=== PATIENT | female | born 1985 | race Caucasian/White ===

== ENCOUNTER 2017-08-10 08:05 | Emergency (ER) | payer SELFPAY ==
[~2017-08-10] VITALS: Ht 152.4 cm; Wt 90.5 kg
[~2017-08-10 08:05] MED LIST: CEPH500C3
[2017-08-10 08:07] VITALS: BP 147/99; PULSE 87; RESP 20; TEMP 97.5; O2SAT 100
[2017-08-10] MEDS ORDERED: ALPR0.5T3 PO (08:41)
[2017-08-10] MEDS ORDERED: CARB200T PO (08:41)
[2017-08-10] MEDS ORDERED: ADDE20 PO (08:41)
[2017-08-10] MEDS ORDERED: ZOLP10TA3 PO (08:41)
[2017-08-10] MEDS ORDERED: BUPR300T PO (08:41)
--- NOTE | 2017-08-10 08:41 | PD ---
HPI Chief Complaint: Abdominal Pain Time Seen by Provider: 08:39 Travel History International Travel<30 days: No Contact w/Intl Traveler<30days: No Traveled to known affect area: No History of Present Illness HPI 32-year-old female came to the emergency room complaining of vomiting, epigastric pain and diarrhea since yesterday. Patient was extremely tearful and anxious while trying to give me the history. She does have a history of these abdominal pains but has not had it in few months now. She was going to [place] for her previous episodes. She has had 2 endoscopy and colonoscopy and with biopsy. They have all been negative. Vital signs are stable. Patient points to her epigastric area for the pain with no radiation. PFSH Past Medical History Narrative Medical List of her past medical, surgical, social and family history reviewed from the nursing note. Arthritis: No Asthma: No Autoimmune Disease: No Heart Rhythm Problems: No High Cholesterol: No Chest Pain: No Congestive Heart Failure: No COPD: No Cerebrovascular Accident: No Diabetes: No Diminished Hearing: No Gastrointestinal Disorders: Yes (HEREDITARY ANGIOEDEMA) GERD: No Glaucoma: No Headaches: No Hepatitis: No Hiatal Hernia: No Hypertension: No Kidney Stones: No Reproductive: Yes (ENDOMETRIAL HYPERPLASIA) Myocardial Infarction: No Renal Failure: No Seizures: No Sleep Apnea: No Thyroid Disease: No Ulcer: Yes Tetanus Vaccination: Unknown Influenza Vaccination: No ?: Not : 1 Para: 0 Miscarriage: 1 Dilation and Curettage (D&C): Yes Past Surgical History AICD: No Gynecologic Surgery: Yes (MASS REMOVED FROM UTERUS) Pacemaker: No Social History Alcohol Use: Yes (ONCE A WEEK ) Tobacco Use: No (7.5 PACK YEARS ) Substance Use: No Allergies-Medications (Allergen,Severity, Reaction): Coded Allergies: ondansetron (Verified Allergy, Severe, anaphalactic, 08/10/17) morphine (Verified Allergy, Intermediate, hives, 08/10/17) Comments List of her allergies reviewed from the nursing note. Reported Meds & Prescriptions Reported Meds & Active Scripts Active Protonix (Pantoprazole Sodium) 20 Mg Tab 20 Mg PO DAILY Macrobid (Nitrofurantoin Monoh/Nitrofur Macro) 100 Mg Cap 100 Mg PO BID 7 Days Reported Alprazolam 0.5 Mg Tab 0.5 Mg PO Q8H PRN Carbamazepine 200 Mg Tab 200 Mg PO BID Adderall (Amphetamine-Dextroamphetamine) 20 Mg Tab 20 Mg PO BID Avoid late evening doses. Space doses at least 4 to 6 hours if more than once/day dosing. Bupropion HCl ER 24 HR (Bupropion HCl) 300 Mg Tab 300 Mg PO DAILY Zolpidem (Zolpidem Tartrate) 10 Mg Tab 10 Mg PO HS PRN Narrative Medication List of her home medications reviewed from the nursing note. Review of Systems Except as stated in HPI: all other systems reviewed are Neg Gastrointestinal: Positive: Nausea, Vomiting, Diarrhea, Abdominal Pain Physical Exam Narrative GENERAL: Awake, alert, anxious, tearful, obese, moderate distress SKIN: Focused skin assessment warm/dry. HEAD: Atraumatic. Normocephalic. EYES: Pupils equal and round. No scleral icterus. No injection or drainage. ENT: No nasal bleeding or discharge. Mucous membranes pink and moist. NECK: Trachea midline. No JVD. CARDIOVASCULAR: Regular rate and rhythm. No murmur appreciated. RESPIRATORY: No accessory muscle use. Clear to auscultation. Breath sounds equal bilaterally. GASTROINTESTINAL: Abdomen soft, non-tender, nondistended. Hepatic and splenic margins not palpable. MUSCULOSKELETAL: No obvious deformities. No clubbing. No cyanosis. No edema. NEUROLOGICAL: Awake and alert. No obvious cranial nerve deficits. Motor grossly within normal limits. Normal speech. PSYCHIATRIC: Appropriate mood and affect; insight and judgment normal. Data Data Last Documented VS Orders Orders Complete Blood Count With Diff (08/10/17 08:46) Comprehensive Metabolic Panel (08/10/17 08:46) Lipase (08/10/17 08:46) Iv Access Insert/Monitor (08/10/17 08:46) Ecg Monitoring (08/10/17 08:46) Oximetry (08/10/17 08:46) Pantoprazole Inj (Protonix Inj) (08/10/17 09:00) Sodium Chloride 0.9% Flush (Ns Flush) (08/10/17 09:00) Ketorolac Inj (Toradol Inj) (08/10/17 09:00) Metoclopramide Inj (Reglan Inj) (08/10/17 09:00) Alprazolam (Xanax) (08/10/17 09:00) Urinalysis - C+S If Indicated (08/10/17 08:48) Ed Urine Pregnancytest Poc (08/10/17 08:48) Ct Abd/Pel W/O Iv Contrast (08/10/17 ) ^ Straight Catheter (08/10/17 11:04) Urine Culture (08/10/17 11:15) Nitrofurantoin Monohyd Macrocr (Macrobid (08/10/17 12:15) Ed Discharge Order (08/10/17 13:08) Labs Laboratory Tests Test 08/10/17 09:05 08/10/17 11:15 White Blood Count 9.6 TH/MM3 Red Blood Count 4.60 MIL/MM3 Hemoglobin 14.3 GM/DL Hematocrit 40.7 % Mean Corpuscular Volume 88.4 FL Mean Corpuscular Hemoglobin 31.0 PG Mean Corpuscular Hemoglobin Concent 35.0 % Red Cell Distribution Width 12.3 % Platelet Count 211 TH/MM3 Mean Platelet Volume 9.4 FL Neutrophils (%) (Auto) 75.3 % Lymphocytes (%) (Auto) 16.3 % Monocytes (%) (Auto) 6.2 % Eosinophils (%) (Auto) 1.8 % Basophils (%) (Auto) 0.4 % Neutrophils # (Auto) 7.2 TH/MM3 Lymphocytes # (Auto) 1.6 TH/MM3 Monocytes # (Auto) 0.6 TH/MM3 Eosinophils # (Auto) 0.2 TH/MM3 Basophils # (Auto) 0.0 TH/MM3 CBC Comment DIFF FINAL Differential Comment Blood Urea Nitrogen 20 MG/DL Creatinine 0.69 MG/DL Random Glucose 87 MG/DL Total Protein 7.1 GM/DL Albumin 3.9 GM/DL Calcium Level 8.8 MG/DL Alkaline Phosphatase 63 U/L Aspartate Amino Transf (AST/SGOT) 27 U/L Alanine Aminotransferase (ALT/SGPT) 59 U/L Total Bilirubin 0.3 MG/DL Sodium Level 139 MEQ/L Potassium Level 4.2 MEQ/L Chloride Level 108 MEQ/L Carbon Dioxide Level 21.7 MEQ/L Anion Gap 9 MEQ/L Estimat Glomerular Filtration Rate 99 ML/MIN Lipase 287 U/L Urine Color YELLOW Urine Turbidity HAZY Urine pH 6.0 Urine Specific [place] 1.037 Urine Protein 30 mg/dL Urine Glucose (UA) NEG mg/dL Urine Ketones NEG mg/dL Urine Occult Blood TRACE Urine Nitrite NEG Urine Bilirubin NEG Urine Urobilinogen LESS THAN 2.0 MG/DL Urine Leukocyte Esterase LARGE Urine RBC 9 /hpf Urine WBC 42 /hpf Urine Squamous Epithelial Cells 18 /hpf Urine Bacteria FEW /hpf Urine Mucus MANY /lpf Microscopic Urinalysis Comment CULTURE INDICATED MDM Medical Decision Making Medical Screen Exam Complete: Yes Emergency Medical Condition: Yes Medical Record Reviewed: Yes Differential Diagnosis Acute gastritis, acute gastroenteritis Narrative Course 11:30 AM blood test results are back and within acceptable limits. Patient just gave a UA. Awaiting for urine and CT scan. Patient was given IV Protonix and Zofran. She has not had any more vomiting or diarrhea episode since she has been here. 1:09 PM the acute issues. Patient does have a UTI and she was given Macrobid for it. She will be discharged home on prescription. Procedures EKG Prior to Arrival: No Diagnosis Primary Impression: Abdominal pain Qualified Codes: R10.13 - Epigastric pain Additional Impressions: UTI (urinary tract infection) Qualified Codes: N39.0 - Urinary tract infection, site not specified Acute gastritis Qualified Codes: K29.00 - Acute gastritis without bleeding Referrals: Primary Care Physician Additional Instructions: Please return to the ER if condition worsens or any other new concerns. Otherwise follow-up with your primary care. Take the medication as per the prescription directions Med/Other Pt SpecificInfo: Prescription(s) given Scripts Pantoprazole (Protonix) 20 Mg Tab 20 MG PO DAILY for Reflux, #30 TAB 0 Refills Prov: Dinorah Rodriges MD 08/10/17 Nitrofurantoin Monohydrate Macrocrystals (Macrobid) 100 Mg Cap 100 MG PO BID for Infection for 7 Days, #14 CAP 0 Refills Prov: Dinorah Rodriges MD 08/10/17 Disposition: 01 DISCHARGE HOME Condition: Stable Dinorah Rodriges MD Aug 10, 2017 08:41
[2017-08-10] MEDS ORDERED: KETOROLAC TROMETHAMINE 30 MG/ML (IVP) VIAL IVP ONE (09:00)
[2017-08-10] MEDS ORDERED: METOCLOPRAMIDE HCL 10 MG/2 ML VIAL IV PUSH ONE (09:00)
[2017-08-10] MEDS ORDERED: ALPRAZolam 0.5 MG TAB PO ONE (09:00)
[2017-08-10] MEDS ORDERED: SODIUM CHLORIDE 0.9% FLUSH 10 ML FLUSH IV FLUSH PRN (09:00)
[2017-08-10] MEDS ORDERED: PANTOPRAZOLE SODIUM 40 MG VIAL IVP ONE (09:00)
[2017-08-10 09:13] VITALS: O2SAT 99
[2017-08-10 09:21] LABS: AUTOMATED NEUTROPHIL # 7.2 TH/MM3 (1.8-7.7); BASOPHIL % 0.4 % (0.0-2.0); EOSINOPHIL # 0.2 TH/MM3 (0-0.4); EOSINOPHIL % 1.8 % (0.0-4.0); HEMATOCRIT 40.7 % (35.0-46.0); HEMOGLOBIN 14.3 GM/DL (11.6-15.3); LYMPH % 16.3 % (9.0-44.0); LYMPHOCYTE # 1.6 TH/MM3 (1.0-4.8); MEAN CELL VOLUME 88.4 FL (80.0-100.0); MEAN PLATELET VOLUME 9.4 FL (7.0-11.0); MONO % 6.2 % (0.0-8.0); MONOCYTE # 0.6 TH/MM3 (0-0.9); NEUT % 75.3 % (16.0-70.0); PLATELET COUNT 211 TH/MM3 (150-450); RED CELL DISTRIBUTION WIDTH 12.3 % (11.6-17.2); WHITE BLOOD COUNT 9.6 TH/MM3 (4.0-11.0)
[2017-08-10 09:37] LABS: ALBUMIN 3.9 GM/DL (3.4-5.0); ALT (GPT) 59 U/L (10-53); AST (GOT) 27 U/L (15-37); BICARBONATE 21.7 MEQ/L (21.0-32.0); BLOOD UREA NITROGEN 20 MG/DL (7-18); CALCIUM 8.8 MG/DL (8.5-10.1); CHLORIDE 108 MEQ/L (98-107); CREATININE 0.69 MG/DL (0.50-1.00); GLOMERULAR FILTRATION RATE 99 ML/MIN (>89); GLUCOSE,RANDOM 87 MG/DL (74-106); SODIUM (NA) 139 MEQ/L (136-145)
[2017-08-10 09:40] LABS: ALKALINE PHOSPHATASE 63 U/L (45-117); TOTAL BILIRUBIN ADULT 0.3 MG/DL (0.2-1.0); TOTAL PROTEIN 7.1 GM/DL (6.4-8.2)
[2017-08-10 10:21] VITALS: RESP 18
[2017-08-10 11:35] LABS: BACTERIA, URINE FEW /hpf; BLOOD, URINE TRACE (NEG); GLUCOSE,URINE NEG (NEG); KETONE, URINE NEG (NEG); MUCUS URINE MANY /lpf (OCC); NITRITE,URINE NEG (NEG); SQUAMOUS EPITHELIAL CELL URINE 18 /hpf (0-5); URINE COLOR YELLOW (YELLW/STRAW); URINE LEUKOCYTE ESTERASE LARGE (NEG)
[2017-08-10 11:37] LABS: BILIRUBIN, URINE NEG (NEG)
[2017-08-10] MEDS ORDERED: NITROFURANTOIN MONOHYD MACROCR 100 MG CAP PO ONE (12:15)
--- NOTE | 2017-08-10 12:16 | RADRPT ---
EXAM DATE/TIME: 08/10/2017 11:59 [facility] COMPARISON: No previous studies available for comparison. INDICATIONS : Abdominal pain, nausea, vomitting. ORAL CONTRAST: No oral contrast ingested. RADIATION DOSE: 16.65 CTDIvol (mGy) MEDICAL HISTORY : Endomentrial hyperplasia SURGICAL HISTORY : Uterine mass removal ENCOUNTER: Initial ACUITY: 1 day PAIN SCALE: 5/10 LOCATION: Bilateral upper quadrant TECHNIQUE: Volumetric scanning of the abdomen and pelvis was performed. Using automated exposure control and ad justment of the mA and/or kV according to patient size, radiation dose was kept as low as reasonably achievable to obtain optimal diagnostic quality images. DICOM format image data is available electro nically for review and comparison. FINDINGS: LOWER LUNGS: The visualized lower lungs are clear. LIVER: Homogeneous density without lesion. There is no dilation of the biliary tree. No calcified gallston es. SPLEEN: Normal size without lesion. PANCREAS: Within normal limits. KIDNEYS: Normal in size and shape. There is no mass, stone, or hydronephrosis. ADRENAL GLANDS: Within normal limits. VASCULAR: There is no aortic aneurysm. BOWEL/MESENTERY: The stomach, small bowel, and colon demonstrate no acute abnormality. There is no free intraperitone al air or fluid. ABDOMINAL WALL: Within normal limits. RETROPERITONEUM: There is no lymphadenopathy. BLADDER: No wall thickening or mass. REPRODUCTIVE: Intrauterine device present. No evidence of pelvic mass or free fluid. INGUINAL: There is no lymphadenopathy or hernia. MUSCULOSKELETAL: Within normal limits for patient age. CONCLUSION: No acute CT findings in the abdomen or pelvis Brent Pelayo MD on August 10, 2017 at 12:10 Board Certified Radiologist. This report was verified electronically.
[2017-08-10] MEDS ORDERED: PANT20 PO (13:12)
[2017-08-10] MEDS ORDERED: MACR100C2 PO (13:12)
== END 2017-08-10 14:03 | disposition home or self-care (01) ==
LOC: NEPE 08:05
DX: K29.00 Acute gastritis without bleeding (principal); N39.0 Urinary tract infection, site not specified
CPT/HCPCS: 74176; 80053; 81001; 83690; 84703; 85025; 87086; 96374; 96375; 99284; C9113; J1885; J2765